=== PATIENT | male | born 1985 | race Caucasian/White ===

== ENCOUNTER 2018-03-30 20:42 | Inpatient (IN) ==
[2018-03-30] MEDS ORDERED: Ondansetron 4 MG/2 ML VIAL IVP ONE (20:52)
--- NOTE | 2018-03-30 21:05 | Emergency Department Note ---
Disposition Clinical Impression: Acute hyperglycemia, Diabetes mellitus, new onset Disposition: Admitted As Inpatient Condition: Fair Time of Disposition: 22:01 General Adult HPI - General Chief complaint: ED General Medical Stated complaint: WEAKNESS /HIGH BLOOD SUGAR Time Seen by Provider: 03/30/18 20:51 Source: patient, EMS Mode of arrival: EMS Limitations: no limitations Nursing Notes Reviewed: Yes Vital Signs Reviewed: Yes - History of Present Illness Pt Subjective Complaint: Not feeling well Onset (ago): week(s) (About a week) Location: other (Generalized symptoms) Pain Severity: moderate Pain Scale: 6 Quality: aching Consistency: constant Improves with: nothing Worsens with: nothing Associated symptoms: Reports: other (Patient describes excessive dryness of his mouth and feeling very very thirsty. He says is urinating constantly including getting up in the middle of night to urinate.) - Related Data Home Medications Medication Instructions Recorded Confirmed No Known Home Drugs 03/30/18 03/30/18 Allergies Allergy/AdvReac Type Severity Reaction Status Date / Time No Known Allergies Allergy Verified 03/30/18 20:43 All systems ED: reviewed and negative except as stated. Constitutional: Denies: fever, chills ENT ED: Denies: ear pain, throat pain, congestion Cardiovascular: Denies: chest pain, palpitations Respiratory: Denies: cough, dyspnea, wheezes Gastrointestinal: Denies: abdominal pain, vomiting, diarrhea Genitourinary: Reports: frequency Musculoskeletal: Denies: back pain, neck pain Integumentary: Denies: rash Neurological: Denies: headache Past Medical History - Past Medical History Attestation: Yes The following information was validated with the patient. Source: patient, nursing notes reviewed Medical history: Reports: no medical history Psychiatric history: Reports: no psych history - Social History Smoking Status: Current every day smoker Smokeless Tobacco Status: No Alcohol use: Reports: occasionally Drug use: Reports: none Physical Exam - General Limitations: no limitations General appearance: alert, in no apparent distress - Head Head exam: atraumatic, normocephalic, normal inspection - Eye Eye exam: Present: normal appearance, PERRL, EOMI. Absent: scleral icterus, conjunctival injection - ENT ENT exam: normal exam, normal oropharynx, mucous membranes dry, normal external ear exam - Neck Neck exam: Present: normal inspection, full ROM. Absent: meningismus - Chest Chest inspection: Present: normal inspection, symmetric chest wall rise. Absent : tenderness - Respiratory Respiratory exam: Present: normal lung sounds bilaterally. Absent: respiratory distress, wheezes - Cardiovascular Cardiovascular exam: Present: regular rate, normal rhythm, normal heart sounds - Abdominal Exam Abdominal exam: Present: soft, Non-Tender, normal bowel sounds - Extremities Exam Extremities exam: Present: normal inspection. Absent: pedal edema - Neurological Exam Neurological exam: Present: alert, oriented X3 - Psychiatric Psychiatric exam: Present: normal affect, normal mood - Skin Skin exam: Present: warm, dry. Absent: rash Course Course Narrative: Patient presents feeling generally ill for the past week and gives much of symptoms that are concerning for hyperglycemia. Indeed the squad had an elevated Accu-Chek and we repeated that here and is actually is reading high. He has no known history of diabetes but he does have diabetes in the family. He does not describe any other illnesses going on. We gave him IV fluids and initiated DKA workup. Disposition will be based on diagnostic results and reevaluation. - Reevaluation(s) Reevaluation #1: Patient sugar is 975. He is not acidotic although he does have some ketones in his but. He has a pseudohyponatremia due to the elevated glucose. We have given him IV fluids here. We will start him on insulin drip. I will talk to the hospitalist for admission. Time: 21:59 - Consultations Consultation #1: Dr. Syed, hospitalist - I discussed the case with the hospitalist. We will start insulin drip and admit the patient to the floor for further management. Time: 21:59 Vital Signs Temperature 98.7 F 03/30/18 20:44 Pulse Rate 95 03/30/18 20:44 Respiratory Rate 20 03/30/18 20:44 Blood Pressure 148/89 03/30/18 20:44 O2 Sat by Pulse Oximetry 96 03/30/18 20:44 Temperature 98.8 F 03/30/18 22:33 Pulse Rate 91 03/30/18 22:33 Respiratory Rate 22 03/30/18 22:33 Blood Pressure 128/86 03/30/18 22:33 O2 Sat by Pulse Oximetry 97 03/30/18 22:33 Oxygen Delivery Oxygen Delivery Room Air Medical Decision Making - Lab Data Lab results reviewed: Yes I reviewed the patient's lab results. Result diagrams: 03/30/18 21:11 03/30/18 21:11 Lab Results 03/30/18 03/30/18 03/30/18 Range/Units 21:11 21:11 21:11 WBC 12.0 H (4.3-11.1) K/mcL RBC 5.23 (4.19-5.50) M/mcL Hgb 15.5 (12.9-16.9) g/dL Hct 43.6 (37.5-50.1) % MCV 83.4 (83.0-100.0) fL MCH 29.6 (28.0-33.3) pg MCHC 35.6 H (31.6-35.5) g/dL RDW 12.3 (11.5-14.5) % Plt Count 319 (140-400) K/mcL MPV 10.0 (9.4-12.4) fL Immature Gran % 0.5 (0-4) % Seg Neutrophils % 66.5 % Lymphocytes % 26.9 % Monocytes % 5.7 % Eosinophils % 0.0 % Basophils % 0.4 % Neutrophils # 8.0 (1.6-8.9) K/mcL Lymphocytes # 3.2 (0.6-4.6) K/mcL Monocytes # 0.7 (0.0-1.3) K/mcL Eosinophils # 0.0 (0.0-0.6) K/mcL Basophils # 0.1 (0.0-0.2) K/mcL Sample Site ABG pH (7.32-7.45) pH Units ABG pCO2 (35-45) mmHg ABG pO2 (85-104) mmHg ABG HCO3 (21-27) mEq/L ABG Total CO2 (20-26) mEq/L ABG O2 Saturation (95-98) % ABG Base Excess (-2 to 3) mEq/L Rambo Test O2 Delivery Device Sodium 118 L* (136-145) mEq/L Potassium 3.9 (3.5-5.1) mEq/L Chloride 84 L (98-107) mEq/L Carbon Dioxide 25 (23-29) mEq/L BUN 12 (6-20) mg/dL Creatinine 1.12 (0.70-1.30) mg/dL Est GFR ( Amer) > 60 (> 60) Est GFR (Non-Af Amer) > 60 (> 60) BUN/Creatinine Ratio 11 (6-26) Glucose 975 H* (70-105) mg/dL Calculated Osmolality 294 (280-300) Lactic Acid (0.5-2.2) mmol/L Calcium 9.1 (8.6-10.3) mg/dL Troponin I (< 0.04) ng/mL Beta-Hydroxybutyric Acd 0.44 H (0.02-0.27) mmol/L Urine Color (Yellow) Urine Clarity (Clear) Urine pH (5.0-8.0) pH Units Ur Specific [place] (1.010-1.025) Urine Protein (Neg-Trace) mg/dL Urine Glucose (UA) (Normal) mg/dL Urine Ketones (Negative) mg/dL Urine Blood (Negative) Urine Nitrite (Negative) Urine Bilirubin (Negative) Urine Urobilinogen (Normal) mg/dL Ur Leukocyte Esterase (Negative) Ur Culture Indicated? (NO) 03/30/18 03/30/18 03/30/18 Range/Units 21:11 21:11 21:11 WBC (4.3-11.1) K/mcL RBC (4.19-5.50) M/mcL Hgb (12.9-16.9) g/dL Hct (37.5-50.1) % MCV (83.0-100.0) fL MCH (28.0-33.3) pg MCHC (31.6-35.5) g/dL RDW (11.5-14.5) % Plt Count (140-400) K/mcL MPV (9.4-12.4) fL Immature Gran % (0-4) % Seg Neutrophils % % Lymphocytes % % Monocytes % % Eosinophils % % Basophils % % Neutrophils # (1.6-8.9) K/mcL Lymphocytes # (0.6-4.6) K/mcL Monocytes # (0.0-1.3) K/mcL Eosinophils # (0.0-0.6) K/mcL Basophils # (0.0-0.2) K/mcL Sample Site R Radial ABG pH 7.39 (7.32-7.45) pH Units ABG pCO2 40 (35-45) mmHg ABG pO2 79 L (85-104) mmHg ABG HCO3 24 (21-27) mEq/L ABG Total CO2 26 (20-26) mEq/L ABG O2 Saturation 96 (95-98) % ABG Base Excess -1 (-2 to 3) mEq/L Rambo Test Positive O2 Delivery Device Room Air Sodium (136-145) mEq/L Potassium (3.5-5.1) mEq/L Chloride (98-107) mEq/L Carbon Dioxide (23-29) mEq/L BUN (6-20) mg/dL Creatinine (0.70-1.30) mg/dL Est GFR ( Amer) (> 60) Est GFR (Non-Af Amer) (> 60) BUN/Creatinine Ratio (6-26) Glucose (70-105) mg/dL Calculated Osmolality (280-300) Lactic Acid 3.0 H (0.5-2.2) mmol/L Calcium (8.6-10.3) mg/dL Troponin I < 0.03 (< 0.04) ng/mL Beta-Hydroxybutyric Acd (0.02-0.27) mmol/L Urine Color (Yellow) Urine Clarity (Clear) Urine pH (5.0-8.0) pH Units Ur Specific [place] (1.010-1.025) Urine Protein (Neg-Trace) mg/dL Urine Glucose (UA) (Normal) mg/dL Urine Ketones (Negative) mg/dL Urine Blood (Negative) Urine Nitrite (Negative) Urine Bilirubin (Negative) Urine Urobilinogen (Normal) mg/dL Ur Leukocyte Esterase (Negative) Ur Culture Indicated? (NO) 03/30/18 Range/Units 21:48 WBC (4.3-11.1) K/mcL RBC (4.19-5.50) M/mcL Hgb (12.9-16.9) g/dL Hct (37.5-50.1) % MCV (83.0-100.0) fL MCH (28.0-33.3) pg MCHC (31.6-35.5) g/dL RDW (11.5-14.5) % Plt Count (140-400) K/mcL MPV (9.4-12.4) fL Immature Gran % (0-4) % Seg Neutrophils % % Lymphocytes % % Monocytes % % Eosinophils % % Basophils % % Neutrophils # (1.6-8.9) K/mcL Lymphocytes # (0.6-4.6) K/mcL Monocytes # (0.0-1.3) K/mcL Eosinophils # (0.0-0.6) K/mcL Basophils # (0.0-0.2) K/mcL Sample Site ABG pH (7.32-7.45) pH Units ABG pCO2 (35-45) mmHg ABG pO2 (85-104) mmHg ABG HCO3 (21-27) mEq/L ABG Total CO2 (20-26) mEq/L ABG O2 Saturation (95-98) % ABG Base Excess (-2 to 3) mEq/L Rambo Test O2 Delivery Device Sodium (136-145) mEq/L Potassium (3.5-5.1) mEq/L Chloride (98-107) mEq/L Carbon Dioxide (23-29) mEq/L BUN (6-20) mg/dL Creatinine (0.70-1.30) mg/dL Est GFR ( Amer) (> 60) Est GFR (Non-Af Amer) (> 60) BUN/Creatinine Ratio (6-26) Glucose (70-105) mg/dL Calculated Osmolality (280-300) Lactic Acid (0.5-2.2) mmol/L Calcium (8.6-10.3) mg/dL Troponin I (< 0.04) ng/mL Beta-Hydroxybutyric Acd (0.02-0.27) mmol/L Urine Color Straw (Yellow) Urine Clarity Clear (Clear) Urine pH 6.0 (5.0-8.0) pH Units Ur Specific [place] 1.010 (1.010-1.025) Urine Protein Negative (Neg-Trace) mg/dL Urine Glucose (UA) 500 H (Normal) mg/dL Urine Ketones Negative (Negative) mg/dL Urine Blood Negative (Negative) Urine Nitrite Negative (Negative) Urine Bilirubin Negative (Negative) Urine Urobilinogen Normal (Normal) mg/dL Ur Leukocyte Esterase Negative (Negative) Ur Culture Indicated? NO (NO) - Radiology Data Radiology results reviewed: Yes I reviewed the patient's radiology results. - EKG Data EKG #1 EKG attestation: Yes I reviewed and interpreted this EKG. EKG results narrative: Twelve-lead EKG performed at 20 1:13 PM and interpreted by ED physician showing sinus rhythm at a rate of 94. Normal axis. Good hour progression across precordium. Nonspecific T-wave abnormalities. Critical Care Time Critical Care Time: Yes Total Critical Care Time: 30 Attestation: Hyperglycemia requiring insulin drip
[2018-03-30 21:16] LABS: ABG Base Excess -1 mEq/L (-2 to 3); ABG HCO3 24 mEq/L (21-27); ABG Oxygen Saturation 96 % (95-98); ABG PCO2 40 mmHg (35-45); ABG PH 7.39 pH Units (7.32-7.45); ABG PO2 79 mmHg (85-104); ABG TCO2 26 mEq/L (20-26)
[2018-03-30 21:22] LABS: Basophils # 0.1 K/mcL (0.0-0.2); Basophils % 0.4 %; Hematocrit 43.6 % (37.5-50.1); Hemoglobin 15.5 g/dL (12.9-16.9); Immature Granulocytes % 0.5 % (0-4); Lymphocytes # 3.2 K/mcL (0.6-4.6); Lymphocytes % 26.9 %; Mean Corpuscular HGB Conc 35.6 g/dL (31.6-35.5); Mean Corpuscular Hemoglobin 29.6 pg (28.0-33.3); Mean Corpuscular Volume 83.4 fL (83.0-100.0); Monocytes # 0.7 K/mcL (0.0-1.3); Monocytes % 5.7 %; Platelet Count 319 K/mcL (140-400); Red Blood Count 5.23 M/mcL (4.19-5.50); Red Cell Distribution Width 12.3 % (11.5-14.5); Segmented Neutrophils % 66.5 %
[2018-03-30] MEDS: 0.9 % Sodium Chloride 1,000 ML IVC ONE ×2 (21:22→22:30)
[2018-03-30 21:50] LABS: BUN/Creatinine Ratio 11 (6-26); Blood Urea Nitrogen 12 mg/dL (6-20); Calcium 9.1 mg/dL (8.6-10.3); Carbon Dioxide 25 mEq/L (23-29); Chloride 84 mEq/L (98-107); Glucose 975 mg/dL (70-105); Osmolality,Calculated 294 (280-300); Potassium 3.9 mEq/L (3.5-5.1); eGFR For Non-African Americans > 60 (> 60)
[2018-03-30] MEDS ORDERED: 0.9 % Sodium Chloride 1,000 ML IVC ONE (21:52)
[2018-03-30 22:01] LABS: Bilirubin,Urine Negative (Negative); Blood,Urine Negative (Negative); Clarity,Urine Clear (Clear); Glucose,Urine (UA) 500 mg/dL (Normal); Ketones,Urine Negative (Negative); Leukocyte Esterase,Urine Negative (Negative); Nitrite,Urine Negative (Negative); Protein,Urine Negative (Neg-Trace); Urobilinogen,Urine Normal (Normal)
[2018-03-30] MEDS ORDERED: *HR* Dextrose 50 % in Water (Syg) 50 ML SYRINGE IVP PRN ×2 (22:01→23:22)
[2018-03-30 22:02] LABS: Color,Urine Straw (Yellow)
[2018-03-30] MEDS ORDERED: Insulin Human Regular 100 UNIT in 0.9 % Sodium Chloride 100 ML IVC SCH ×2 (22:15→23:22)
[2018-03-30] MEDS ORDERED: Naloxone 0.4 MG/ML INJ IVP PRN (23:22)
[2018-03-30] MEDS ORDERED: 0.9 % Sodium Chloride 1,000 ML IVC SCH (23:22)
[2018-03-31] MEDS: 0.45 % Sodium Chloride w/KCl 20 MEQ/1,000 ML MLS IVC SCH ×2 (01:12→09:35)
[2018-03-31 06:51] LABS: Basophils # 0.1 K/mcL (0.0-0.2); Basophils % 0.7 %; Eosinophils % 0.2 %; Hemoglobin 14.4 g/dL (12.9-16.9); Immature Granulocytes % 0.4 % (0-4); Mean Corpuscular Hemoglobin 29.6 pg (28.0-33.3); Mean Corpuscular Volume 82.1 fL (83.0-100.0); Mean Platelet Volume 9.8 fL (9.4-12.4); Monocytes # 0.9 K/mcL (0.0-1.3); Monocytes % 7.6 %; Neutrophils # 4.8 K/mcL (1.6-8.9); Platelet Count 293 K/mcL (140-400); Red Blood Count 4.87 M/mcL (4.19-5.50); Segmented Neutrophils % 42.1 %
[2018-03-31 07:11] LABS: Lymphocytes # 5.5 K/mcL (0.6-4.6)
[2018-03-31 07:21] LABS: BUN/Creatinine Ratio 10 (6-26); Blood Urea Nitrogen 8 mg/dL (6-20); Calcium 8.9 mg/dL (8.6-10.3); Carbon Dioxide 29 mEq/L (23-29); Chloride 102 mEq/L (98-107); Glucose 86 mg/dL (70-105); Magnesium 2.1 mg/dL (1.6-2.6); Osmolality,Calculated 288 (280-300); Phosphorous 4.3 mg/dL (2.7-4.5); Potassium 3.5 mEq/L (3.5-5.1); Sodium 140 mEq/L (136-145); eGFR For Non-African Americans > 60 (> 60)
[2018-03-31] MEDS: Insulin LISPRO 300 UNITS/3 ML VIAL SQ SCH ×3 (09:36→17:16)
[2018-03-31 12:48] LABS: Sodium 118 mEq/L (136-145)
--- NOTE | 2018-03-31 15:05 | Internal Med History&Physical ---
Date of Encounter: 03/31/18 Time of Encounter: 14:35 Assessment and Plan (1) Hyperglycemia Current visit: Yes Status: Acute He was started on insulin drip emergency room. This has now been discontinued. Accu-Cheks with SSI have been ordered. Metformin will be started and diabetic teaching done. (2) DM type 2 (diabetes mellitus, type 2) Current visit: Yes Status: Acute Duration unknown. Checking hemoglobin A1c in a.m. Qualifiers: Diabetes mellitus terminal carman insulin use: without mcc use Diabetes mellitus complication status: without complication Qualified Code(s): E11.9 - Type 2 diabetes mellitus without complications (3) Microcytosis Current visit: Yes Status: Acute No previous labs available for comparison. Order iron studies in a.m. Internal Medicine - H&P: HPI Chief complaint: Polyuria, hyperglycemia Admitted From: Emergency Dept Plans for Post Hospital Care: Home History of present illness: Mr. Marquez is a 33 year old male who came to emergency room stating he had 2-3 day history of dry mouth and feeling lightheaded especially upon rising from a seated position. He denies dysuria. He was suspicious he had diabetes since his mother has been diagnosed with DM 2 and has had similar symptoms in the past. He was evaluated in emergency room and found to have severe hyperglycemia with blood sugar 975 MG/DL. He did not have acidosis. He was admitted to [facility] floor for ongoing care needs. He reports he has not seen a PCP in approximately one year. He denies past diagnoses of diabetes. He denies known hyperlipidemia or thyroid disease. Past Med Surg Social Fam HX - Past Medical History Medical history: no medical history Psychiatric history: no psych history - Social History Smoking Status: Current every day smoker Smokeless Tobacco Status: No Alcohol use: occasionally Drug use: none - Family History Mother Age: 54 Living Status: Still Living Hx Family Cardiac Disorders: Yes Hx Family Endocrine Disorder: Yes (Diabetes) Internal Medicine - H&P: Meds No Known Home Drugs 03/30/18 [History] 3 Allergy/AdvReac Type Severity Reaction Status Date / Time No Known Allergies Allergy Verified 03/30/18 20:43 All Systems PM: A 10-system review of systems was performed and is negative for pertinent findings except as documented above in the HPI. Review of systems: Gen.: He states his weight has been stable the past few months Cardiovascular: He denies hypertension MS heart failure angina DVT or pulmonary embolus Respiratory: He has smoked since age 24 up to 2 packs per day. He denies chronic lung disease. He has not been tested for CHANTELLE. GI: He denies disorders of his liver gallbladder or exocrine pancreas : He denies hematuria dysuria or kidney stones Neurologic: He denies large distribution strokes or seizures. Endocrine: As per history of present illness Hematology/oncology: Denies blood disorders cancers or anemia Psychiatric: He denies anxiety depression or other mental health issues [place] skeletal: He denies arthritis gout or other bone joint or muscle disorders. - Constitutional Vitals: Temp Pulse Resp BP Pulse Ox 98.1 F 90 18 137/57 98 03/31/18 10:37 03/31/18 10:37 03/31/18 10:37 03/31/18 10:37 03/31/18 10:37 Exam: Gen.: He is a well-developed obese male resting comfortably in bed who appears in no acute distress at present time HEENT: Head is atraumatic and normocephalic. Eyes: EOMI. There is no scleral icterus. Mouth: Mucosa is moist. Neck: Supple and nontender. There is no thyromegaly or adenopathy noted. Heart: Regular without murmurs gallops or ectopics Lungs: No wheezes or crackles are heard. Abdomen: Soft and nontender. No masses or guarding are noted. Extremities: There is no cyanosis edema or clubbing noted. Dorsalis pedis and posttibial pulses are 1-2 over 2 bilaterally. Neurologic: Mental status: He is talkative and a good historian. Cranial nerves : Smile is symmetric. Forehead wrinkles bilaterally. Tongue protrudes midline. EOMI. Motor: There is no pronator drift. Cerebellar: Finger to nose is intact bilaterally. Skin: Warm and dry Internal Med - H&P Results - Labs CBC & Chem 7: 03/31/18 05:45 03/31/18 05:45 Labs: Short CBC 03/31/18 Range/Units 05:45 WBC 11.3 H (4.3-11.1) K/mcL Hgb 14.4 (12.9-16.9) g/dL Hct 40.0 (37.5-50.1) % Plt Count 293 (140-400) K/mcL Neutrophils # 4.8 (1.6-8.9) K/mcL BMP 03/30/18 03/31/18 23:40 05:45 Sodium 140 D Potassium 3.5 Chloride 102 Carbon Dioxide 29 BUN 8 Creatinine 0.83 Glucose 538 H* 86 Calcium 8.9
[2018-03-31] MEDS: *HR* Metformin 500 MG TABLET PO SCH (17:15)
--- NOTE | 2018-03-31 19:04 | Electrocardiograph Report ---
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
[2018-04-01 04:57] LABS: Basophils # 0.1 K/mcL (0.0-0.2); Basophils % 0.6 %; Eosinophils % 0.1 %; Hematocrit 39.6 % (37.5-50.1); Hemoglobin 14.1 g/dL (12.9-16.9); Immature Granulocytes % 0.5 % (0-4); Lymphocytes # 4.3 K/mcL (0.6-4.6); Lymphocytes % 50.5 %; Mean Corpuscular HGB Conc 35.6 g/dL (31.6-35.5); Mean Corpuscular Hemoglobin 29.6 pg (28.0-33.3); Mean Platelet Volume 9.8 fL (9.4-12.4); Monocytes # 0.5 K/mcL (0.0-1.3); Monocytes % 6.4 %; Neutrophils # 3.5 K/mcL (1.6-8.9); Platelet Count 262 K/mcL (140-400); Red Blood Count 4.77 M/mcL (4.19-5.50); Red Cell Distribution Width 12.1 % (11.5-14.5); Segmented Neutrophils % 41.9 %
[2018-04-01 05:25] LABS: BUN/Creatinine Ratio 8 (6-26); Blood Urea Nitrogen 6 mg/dL (6-20); Calcium 8.7 mg/dL (8.6-10.3); Carbon Dioxide 29 mEq/L (23-29); Chloride 102 mEq/L (98-107); Cholesterol 180 mg/dL (< 200); Glucose 265 mg/dL (70-105); HDL Cholesterol 18 mg/dL (40-59); Magnesium 1.8 mg/dL (1.6-2.6); Osmolality,Calculated 291 (280-300); Phosphorous 3.2 mg/dL (2.7-4.5); Potassium 3.6 mEq/L (3.5-5.1); Sodium 137 mEq/L (136-145); Triglycerides 838 mg/dL (< 150); eGFR For Non-African Americans > 60 (> 60)
[2018-04-01 05:34] LABS: Thyroid Stimulating Hormone 1.872 mcIU/mL (0.340-5.600)
[2018-04-01 06:31] VITALS: BP 97/50
[2018-04-01] MEDS: *HR* Metformin 500 MG TABLET PO SCH (08:29)
[2018-04-01] MEDS: Insulin LISPRO 300 UNITS/3 ML VIAL SQ SCH ×2 (08:30→11:14)
[2018-04-01 09:22] LABS: % Iron Saturation 33 % (20-55); Iron 99 mcg/dL (65-175); Transferrin 215 mg/dL (203-362)
[2018-04-01 09:40] LABS: Ferritin 125 ng/mL (20-250)
--- NOTE | 2018-04-01 10:10 | Discharge Summary ---
Date of Encounter: 04/01/18 Time of Encounter: 10:00 - Discharge Diagnosis (1) DM type 2 (diabetes mellitus, type 2) Priority: Primary Status: Acute Qualifiers: Diabetes mellitus assisted insulin use: without terminal operator use Diabetes mellitus complication status: without complication Qualified Code(s): E11.9 - Type 2 diabetes mellitus without complications (2) Hyperglycemia Priority: Secondary Status: Acute (3) Microcytosis Priority: Secondary Status: Acute Hospital course: Mr. Marquez is a 33 year old male who came to emergency room stating he had 2-3 day history of dry mouth and feeling lightheaded especially upon rising from a seated position. He denies dysuria. He was suspicious he had diabetes since his mother has been diagnosed with DM 2 and has had similar symptoms in the past. He was evaluated in emergency room and found to have severe hyperglycemia with blood sugar 975 MG/DL. He did not have acidosis. He was admitted to [facility] floor for ongoing care needs. Initial orders were written by the emergency room physician. I saw him on March 31 and performed the history and physical. He was given insulin drip in emergency room but this was discontinued when blood sugars returned to a safe range. Accu-Cheks with SSI were ordered. He was given diabetic teaching and metformin was started and tolerated well. Lipid profile showed cholesterol 180, triglycerides 838, HDL 18, and total/HDL ratio of 10.0. He was started on Zocor 20 mg daily and his PCP can monitor. On April 01 he felt improved and wished to be discharged home which I felt was reasonable. He will follow with Vee Escalante CNP within 1 week. - Time Spent with Patient Total time spent providing and/or coordinating discharge services: - Discharge Medications Prescriptions: Metformin HCl 1,000 mg PO BID #60 tablet Simvastatin [Zocor] 20 mg PO HS #30 tablet Home Medications: Metformin HCl 1,000 mg PO BID #60 tablet 04/01/18 [Rx] Simvastatin [Zocor] 20 mg PO HS #30 tablet 04/01/18 [Rx] Allergies/Adverse Reactions: 3 Allergy/AdvReac Type Severity Reaction Status Date / Time No Known Allergies Allergy Verified 03/30/18 20:43 Date of admission: 03/31/18 15:14 Primary care physician: Vee Escalante CNP - Constitutional Vitals: Temp Pulse Resp BP Pulse Ox 97.6 F 72 16 97/50 96 04/01/18 06:30 04/01/18 06:30 04/01/18 06:30 04/01/18 06:30 04/01/18 08:32 - Patient Status Disposition: Home, Self-Care Condition: Fair - Discharge Instructions Follow Up With: Vee Escalante, SWATCHER [Advanced Practice Nurse] - 1 week - Diet and Activity Activity: resume usual activities as tolerated Diet: diabetic diet - VTE Documentation of Mechanical Device: Graduated compression elastic hosiery
[2018-04-01 11:41] LABS: Estimated Average Glucose 280 mg/dl; Hemoglobin A1C 11.4 %
== END 2018-04-01 12:20 | disposition home or self-care (01) | DRG 639 ==
LOC: EMEROOPIK 20:42 → INPPIK 20:42
PROVIDERS: ADMIT Internal Medicine; ATTEND Internal Medicine

== ENCOUNTER 2020-12-04 16:43 | Observation (INO) ==
[2020-12-04] MEDS ORDERED: 0.9 % Sodium Chloride 1,000 ML IVC ONE ×2 (16:47→18:08)
[2020-12-04] MEDS ORDERED: Insulin Regular, Human 100 UNIT/ML SUBQ ONE ×2 (16:47→18:08)
[2020-12-04 17:07] LABS: Basophils # 0.1 K/mcL (0.0-0.2); Basophils % 0.5 %; Hematocrit 42.9 % (37.5-50.1); Hemoglobin 15.2 g/dL (12.9-16.9); Immature Granulocytes % 0.7 % (0-4); Lymphocytes # 1.4 K/mcL (0.6-4.6); Lymphocytes % 11.5 %; Mean Corpuscular HGB Conc 35.4 g/dL (31.6-35.5); Mean Corpuscular Volume 81.9 fL (83.0-100.0); Mean Platelet Volume 9.8 fL (9.4-12.4); Monocytes # 0.6 K/mcL (0.0-1.3); Monocytes % 5.2 %; Neutrophils # 9.9 K/mcL (1.6-8.9); Platelet Count 379 K/mcL (140-400); Red Blood Count 5.24 M/mcL (4.19-5.50); Red Cell Distribution Width 12.2 % (11.5-14.5); Segmented Neutrophils % 82.1 %
[2020-12-04 17:08] LABS: VBG HCO3 24 mEq/L (21-27); VBG PCO2 41 mmHg (41-51); VBG PH 7.37 pH Units (7.32-7.42); VBG PO2 37 mmHg (25-50)
[2020-12-04 17:43] LABS: BUN/Creatinine Ratio 12 (6-26); Blood Urea Nitrogen 12 mg/dL (6-20); Calcium 8.9 mg/dL (8.6-10.3); Carbon Dioxide 25 mEq/L (23-29); Chloride 83 mEq/L (98-107); Osmolality,Calculated 294 (280-300); Potassium 3.8 mEq/L (3.5-5.1); Sodium 117 mEq/L (136-145); eGFR For African Americans > 60 (> 60); eGFR For Non-African Americans > 60 (> 60)
[2020-12-04 17:45] LABS: Glucose 1010 mg/dL (70-105)
[2020-12-04] MEDS ORDERED: Acetaminophen 325 MG TABLET PO PRN (18:05)
[2020-12-04] MEDS ORDERED: Dextrose Gel 15 GM/37.5 ML TUBE PO PRN ×2 (18:05)
[2020-12-04] MEDS ORDERED: *HR* Dextrose 50 % in Water (Vial) 50 ML VIAL IVP PRN (18:05)
[2020-12-04] MEDS ORDERED: Naloxone 0.4 MG/ML INJ IVP PRN (18:05)
[2020-12-04] MEDS ORDERED: Ondansetron ODT 4 MG TAB.RAPDIS SL PRN (18:05)
[2020-12-04] MEDS ORDERED: D5% in Water 1,000 ML IVC PRN (18:05)
[2020-12-04] MEDS ORDERED: 0.9 % Sodium Chloride 1,000 ML IVC SCH ×2 (18:15)
[2020-12-04] MEDS: Insulin LISPRO 300 UNITS/3 ML VIAL SUBQ SCH ×3 (19:38→22:36)
[2020-12-04 21:19] LABS: BUN/Creatinine Ratio 11 (6-26); Blood Urea Nitrogen 10 mg/dL (6-20); Calcium 9.2 mg/dL (8.6-10.3); Carbon Dioxide 27 mEq/L (23-29); Chloride 95 mEq/L (98-107); Glucose 401 mg/dL (70-105); Osmolality,Calculated 290 (280-300); Potassium 3.7 mEq/L (3.5-5.1); Sodium 132 mEq/L (136-145); eGFR For African Americans > 60 (> 60); eGFR For Non-African Americans > 60 (> 60)
[2020-12-04 23:47] LABS: Estimated Average Glucose 246 mg/dl; Hemoglobin A1C 10.2 %
[2020-12-05] MEDS: Insulin LISPRO 300 UNITS/3 ML VIAL SUBQ SCH ×5 (00:19→16:53)
[2020-12-05 02:22] LABS: BUN/Creatinine Ratio 8 (6-26); Blood Urea Nitrogen 8 mg/dL (6-20); Calcium 9.3 mg/dL (8.6-10.3); Carbon Dioxide 31 mEq/L (23-29); Chloride 99 mEq/L (98-107); Glucose 159 mg/dL (70-105); Osmolality,Calculated 286 (280-300); Potassium 3.2 mEq/L (3.5-5.1); Sodium 137 mEq/L (136-145); eGFR For African Americans > 60 (> 60); eGFR For Non-African Americans > 60 (> 60)
[2020-12-05 06:24] LABS: Hematocrit 39.1 % (37.5-50.1); Hemoglobin 14.2 g/dL (12.9-16.9); Mean Corpuscular HGB Conc 36.3 g/dL (31.6-35.5); Mean Corpuscular Hemoglobin 28.9 pg (28.0-33.3); Mean Corpuscular Volume 79.5 fL (83.0-100.0); Mean Platelet Volume 9.1 fL (9.4-12.4); Platelet Count 355 K/mcL (140-400); Red Blood Count 4.92 M/mcL (4.19-5.50); White Blood Count 14.4 K/mcL (4.3-11.1)
[2020-12-05 06:47] LABS: BUN/Creatinine Ratio 11 (6-26); Blood Urea Nitrogen 9 mg/dL (6-20); Carbon Dioxide 32 mEq/L (23-29); Chloride 99 mEq/L (98-107); Chol/HDL Ratio 7.3 (0-4.9); Cholesterol 154 mg/dL (< 200); Glucose 152 mg/dL (70-105); HDL Cholesterol 21 mg/dL (40-59); Magnesium 1.9 mg/dL (1.6-2.6); Osmolality,Calculated 286 (280-300); Potassium 3.3 mEq/L (3.5-5.1); Sodium 137 mEq/L (136-145); Triglycerides 599 mg/dL (< 150); eGFR For African Americans > 60 (> 60); eGFR For Non-African Americans > 60 (> 60)
[2020-12-05 07:04] VITALS: BP 151/67
[2020-12-05] MEDS ORDERED: Insulin LISPRO 300 UNITS/3 ML VIAL SUBQ SCH (11:30)
[2020-12-05] MEDS ORDERED: *HR* Metformin 500 MG TABLET PO SCH (17:00)
== END 2020-12-05 18:15 | disposition home or self-care (01) ==
LOC: EMEROOPIK 16:43 → INPPIK 16:43
PROVIDERS: ADMIT Family Medicine; ATTEND Family Medicine